=== PATIENT | female | born 2000 | race Hispanic/Latino ===

== ENCOUNTER 2020-09-24 21:36 | Emergency (ER) | payer OTHER ==
[2020-09-24 22:07] LABS: APPEARANCE,URINE Clear (CLEAR); BILIRUBIN,URINE Negative (NEGATIVE); COLOR,URINE Yellow (YELLOW); GLUCOSE, URINE (UA) Negative (NEGATIVE); KETONES,URINE Trace mg/dL (NEGATIVE); LEUKOCYTE ESTERASE ,URINE Small (NEGATIVE); NITRATE,URINE Negative (NEGATIVE); OCCULT BLOOD,URINE Negative (NEGATIVE); PH,URINE 7.5 (5.0-8.0); PROTEIN,URINE Negative (NEGATIVE)
[2020-09-24 22:32] LABS: BACTERIA,URINE None Seen /HPF (None Seen); RBC,URINE None Seen /HPF (0-1); WBC,URINE 0-1 /HPF (0-1)
[2020-09-24 22:33] LABS: MUCUS,URINE Few LPF (None Seen); SQUAMOUS EPITHELIAL CELL,UR Few /HPF (0-2)
[2020-09-24] MEDS ORDERED: CEFTRIAXONE SODIUM 1 GM ONE (22:34)
[2020-09-24] MEDS ORDERED: PHENAZOPYRIDINE HCL 200 MG TABLET ONE (22:34)
[2020-09-24] MEDS ORDERED: LIDOCAINE HCL-MPF 1% 2ML VIAL ONE (22:35)
== END 2020-09-24 23:02 | disposition home or self-care (01) ==
LOC: EDH 21:36
DX: N39.0 Urinary tract infection, site not specified (principal)
CPT/HCPCS: 81001; 81025; 96372; 99283; J0696; J3490

== ENCOUNTER 2020-09-27 19:44 | Emergency (ER) | payer OTHER ==
[2020-09-27 20:05] LABS: APPEARANCE,URINE Clear (CLEAR); BILIRUBIN,URINE Small (NEGATIVE); COLOR,URINE Orange (YELLOW); GLUCOSE, URINE (UA) Negative (NEGATIVE); KETONES,URINE Negative (NEGATIVE); LEUKOCYTE ESTERASE ,URINE Small (NEGATIVE); NITRATE,URINE Positive (NEGATIVE); OCCULT BLOOD,URINE Trace (NEGATIVE); PROTEIN,URINE Negative (NEGATIVE)
[2020-09-27 20:06] LABS: HCG,QUAL RESULT NEGATIVE (NEGATIVE)
[2020-09-27 20:19] LABS: BACTERIA,URINE Few /HPF (None Seen); MUCUS,URINE Rare LPF (None Seen); SQUAMOUS EPITHELIAL CELL,UR Few /HPF (0-2)
[2020-09-27] MEDS ORDERED: IBUPROFEN 400 MG TABLET ONE (20:29)
== END 2020-09-27 20:34 | disposition home or self-care (01) ==
LOC: EDH 19:44
DX: N39.0 Urinary tract infection, site not specified (principal)
CPT/HCPCS: 81001; 81025; 87088

== ENCOUNTER 2020-11-11 17:08 | Emergency (ER) | payer OTHER ==
[2020-11-11 17:28] LABS: APPEARANCE,URINE Clear (CLEAR); BILIRUBIN,URINE Negative (NEGATIVE); COLOR,URINE Yellow (YELLOW); GLUCOSE, URINE (UA) Negative (NEGATIVE); KETONES,URINE Negative (NEGATIVE); LEUKOCYTE ESTERASE ,URINE Trace (NEGATIVE); NITRATE,URINE Negative (NEGATIVE); OCCULT BLOOD,URINE Negative (NEGATIVE); PROTEIN,URINE Negative (NEGATIVE); UROBILINOGEN,URINE 0.2 mg/dL (0.2-1.0)
[2020-11-11 17:31] LABS: HCG,QUAL RESULT NEGATIVE (NEGATIVE)
[2020-11-11 17:37] LABS: BACTERIA,URINE None Seen /HPF (None Seen); RBC,URINE None Seen /HPF (0-1); SQUAMOUS EPITHELIAL CELL,UR 0-2 /HPF (0-2); WBC,URINE 0-1 /HPF (0-1)
[2020-11-11 18:00] LABS: BASOPHILS % (AUTO) 0.6 % (0.0-5.0); EOSINOPHILS % (AUTO) 0.6 % (0.0-8.0); LYMPHOCYTES % (AUTO) 20.1 % (21.0-51.0); MEAN CORPUSCULAR HGB CONC 32.2 g/dL (32.0-36.0); MONOCYTES % (AUTO) 8.2 % (3.0-13.0); NEUTROPHILS % (AUTO) 70.1 % (40.0-77.0); PLATELET COUNT (AUTO) 276 K/uL (130-400); RED BLOOD CELL COUNT(AUTO) 3.81 MIL/uL (4.00-5.50); RED CELL DISTRIBUTION WIDTH 13.2 % (11.0-15.5); WHITE BLOOD COUNT (AUTO) 8.2 K/uL (4.8-10.8)
[2020-11-11 18:09] LABS: CREATININE 0.7 mg/dL (0.5-1.5); POTASSIUM 3.9 mmol/L (3.5-5.1)
[2020-11-11 18:13] LABS: ALBUMIN 3.7 g/dL (3.5-5.0); BILIRUBIN,TOTAL 0.3 mg/dL (0.2-1.0); TOTAL PROTEIN, SERUM 7.1 g/dL (6.0-8.3)
[2020-11-11] MEDS ORDERED: CEFTRIAXONE SODIUM 1 GM ONE (18:47)
[2020-11-11] MEDS ORDERED: AZITHROMYCIN 250 MG TABLET PO ONE ×2 (18:47→18:49)
[2020-11-11] MEDS ORDERED: LIDOCAINE HCL-MPF 1% 2ML VIAL ONE (18:48)
== END 2020-11-11 20:55 | disposition home or self-care (01) ==
LOC: EDH 17:08
DX: N73.9 Female pelvic inflammatory disease, unspecified (principal)
CPT/HCPCS: 36415; 76856; 80053; 81001; 81025; 85025; 87088; 87486; 87797; 96372; 99284; J0696; J3490

== ENCOUNTER 2021-05-09 23:33 | Emergency (ER) | payer OTHER ==
[~2021-05-09] VITALS: Ht 152.4 cm; Wt 46.3 kg
[2021-05-10 00:10] VITALS: BP 100/55
[2021-05-10] MEDS ORDERED: PHENAZOPYRIDINE HCL 200 MG TABLET PO SCH (00:15)
[2021-05-10] MEDS ORDERED: CEPHALEXIN 500 MG CAPSULE PO SCH (00:15)
[2021-05-10] MEDS ORDERED: PHENAZOPYRIDINE HCL 200 MG TABLET ONE (00:16)
[2021-05-10] MEDS ORDERED: CEPHALEXIN 500 MG CAPSULE ONE (00:16)
[2021-05-10 00:23] LABS: APPEARANCE,URINE Clear (CLEAR); BILIRUBIN,URINE Negative (NEGATIVE); COLOR,URINE Yellow (YELLOW); GLUCOSE, URINE (UA) Negative (NEGATIVE); KETONES,URINE Negative (NEGATIVE); LEUKOCYTE ESTERASE ,URINE Trace (NEGATIVE); NITRATE,URINE Negative (NEGATIVE); OCCULT BLOOD,URINE Negative (NEGATIVE); PH,URINE 5.5 (5.0-8.0); PROTEIN,URINE Negative (NEGATIVE)
[2021-05-10] MEDS ORDERED: CEPH500B PO (00:25)
[2021-05-10] MEDS ORDERED: PHEN-847 PO (00:25)
[2021-05-10 00:39] LABS: BACTERIA,URINE Few /HPF (None Seen); RBC,URINE None Seen /HPF (0-1)
[2021-05-10 00:40] LABS: MUCUS,URINE Few LPF (None Seen); SQUAMOUS EPITHELIAL CELL,UR Few /HPF (0-2)
== END 2021-05-10 00:41 | disposition home or self-care (01) ==
LOC: EDH 23:33
DX: N30.00 Acute cystitis without hematuria (principal)
CPT/HCPCS: 81001